=== PATIENT | female | born 1965 | race Caucasian/White ===

== ENCOUNTER 2023-08-08 17:41 | Emergency (ER) | payer OTHER, SELFPAY ==
[2023-08-08 17:55] VITALS: BP 146/99
[2023-08-08] MEDS: MOTRIN 600 MG PO (20:04)
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
[2023-08-08 21:01] VITALS: BP 142/92
[2023-08-08 21:02] VITALS: BP 142/92
== END 2023-08-08 21:03 | disposition home or self-care (01) ==
LOC: EMR 17:41
PROVIDERS: EMERGENCY PHYSICIAN Emergency Medicine; FAMILY PHYSICIAN Family Medicine
DX: S46.912A Strain of unspecified muscle, fascia and tendon at shoulder and upper arm level, left arm, initial encounter (principal); V43.52XA Car driver injured in collision with other type car in traffic accident, initial encounter; Y92.410 Unspecified street and highway as the place of occurrence of the external cause
CPT/HCPCS: 99283; 96372; 73030; 73564

== ENCOUNTER 2024-09-04 05:58 | Day surgery (SDC) | payer OTHER, BC, SELFPAY ==
[2024-08-30 13:54] VITALS: BMI 28.8
[2024-08-30 14:12] LABS: Hematocrit 38.5 % (37.0-47.0); Hemoglobin 12.7 g/dL (12.0-16.0); Mean Corpuscular Hgb 29.5 pg (27.0-31.0); Mean Corpuscular Volume 89.3 fL (81.0-99.0); Mean Platelet Volume 12.2 fL (7.4-10.4); Platelet Count 204 10^3/uL (130-400); Red Blood Cell Count 4.31 10^6/uL (4.20-5.40); Red Cell Dist. Width 13.9 % (11.5-14.5); White Blood Cell Count 6.3 10^3/uL (4.8-10.8)
[2024-08-30 14:21] LABS: ALT (SGPT) 20 U/L (0-35); AST (SGOT) 23 U/L (14-36); Albumin 4.7 g/dl (3.5-5.0); Alkaline Phosphatase 120 U/L (38-126); Blood Urea Nitrogen 21 mg/dl (7-17); Calcium 10.2 mg/dl (8.4-10.2); Carbon Dioxide 27 mmol/L (22-30); Chloride 105 mmol/L (98-107); Estimated Creatinine Clearance 74 ml/min; Glucose 90 mg/dl (70-99); Potassium 4.7 mmol/L (3.5-5.1); Sodium 142 mmol/L (135-145); Total Bilirubin 0.5 mg/dl (0.2-1.3); Total Protein 7.4 g/dl (6.3-8.2); eGFR > 60.00
[2024-09-02 10:10] VITALS: BMI 28.8
[2024-09-04] VITALS (18 sets, daily range): BP systolic 107–151; BP diastolic 65–91; PULSE 71–78; O2SAT 90–97; BMI 28.8
[2024-09-04] MEDS: CELEBREX 200 MG PO (06:31)
[2024-09-04] MEDS: TYLENOL 1000 MG PO ×3 (06:32→17:54)
[2024-09-04] MEDS: METHOCARBAMOL 1500 MG PO ×3 (06:32→22:07)
[2024-09-04] MEDS: LYRICA 150 MG PO (06:33)
[2024-09-04] MEDS: NORMOSOL-R/PLASMALYTE-A 1000 IV ×3 (06:33→21:13)
[2024-09-04] MEDS: ZOFRAN 4 MG IV ×2 (09:00→16:37)
--- NOTE | 2024-09-04 09:06 | W.PN.UPDATE ---
Update Note
Progress Note Update
C5-6-7 ACDF
SVT-tele+BB
--- NOTE | 2024-09-04 09:13 | W.DS.TRANS ---
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
-
Discharge Instructions:
Sleep Apnea Risk Intermediate
Discharge Diagnosis/Procedures C5-6-7 ACDF 09/04/24
Diet As tolerated
Activity No strenuous activity
Driving Restrictions No driving
Instructions:
Stand-Alone Forms: Street Cervical D/C Inst.
Changes to Home Medications: Yes
Discharge Medications:
DC Medications w/original date entered in [facility]
atorvastatin 10 mg tablet 10 mg PO HS 09/02/24
duloxetine 60 mg capsule,delayed release 60 mg PO HS 09/02/24
gabapentin 300 mg capsule 300 mg PO HS 09/02/24
metoprolol succinate 25 mg tablet,extended release 24 hr 25 mg PO HS 09/02/24
pantoprazole 40 mg tablet,delayed release 40 mg PO PRN PRN gerd 09/02/24
Saccharomyces boulardii 250 mg capsule (Florastor) 250 mg PO BID #1 cap 09/04/24
acetaminophen 325 mg tablet (Tylenol) 650 mg (2 x 325 mg) PO QID #0 tabs 09/04/24
cephalexin 500 mg capsule 500 mg PO QID infection prevention #20 caps 09/04/24
dexamethasone 4 mg tablet 4 mg PO BID inflammation #6 tabs 09/04/24
diazepam 2 mg tablet (Valium) 2 mg PO BID muscle pain/sleep #10 tabs 09/04/24
docusate sodium 100 mg capsule (Colace) 100 mg PO BID stool softner #1 cap 09/04/24
magnesium hydroxide 400 mg/5 mL oral suspension (Milk of Magnesia) 30 ml PO HS PRN Constipation #1 mL 09/04/24
ondansetron 4 mg disintegrating tablet 4 mg PO Q6H PRN n/v #20 tabs 09/04/24
oxycodone 5 mg tablet 5 mg PO Q6H PRN 1 tab moderate pain, 2 tabs severe pain #30 tabs 09/04/24
sennosides 8.6 mg tablet (Senokot) 17.2 mg (2 x 8.6 mg) PO BID laxative #2 tabs 09/04/24
Home Medication Changes
Saccharomyces boulardii 250 mg capsule (Florastor) 250 mg PO BID #1 cap 09/04/24
acetaminophen 325 mg tablet (Tylenol) 650 mg (2 x 325 mg) PO QID #0 tabs 09/04/24
cephalexin 500 mg capsule 500 mg PO QID infection prevention #20 caps 09/04/24
dexamethasone 4 mg tablet 4 mg PO BID inflammation #6 tabs 09/04/24
diazepam 2 mg tablet (Valium) 2 mg PO BID muscle pain/sleep #10 tabs 09/04/24
docusate sodium 100 mg capsule (Colace) 100 mg PO BID stool softner #1 cap 09/04/24
magnesium hydroxide 400 mg/5 mL oral suspension (Milk of Magnesia) 30 ml PO HS PRN Constipation #1 mL 09/04/24
ondansetron 4 mg disintegrating tablet 4 mg PO Q6H PRN n/v #20 tabs 09/04/24
oxycodone 5 mg tablet 5 mg PO Q6H PRN 1 tab moderate pain, 2 tabs severe pain #30 tabs 09/04/24
sennosides 8.6 mg tablet (Senokot) 17.2 mg (2 x 8.6 mg) PO BID laxative #2 tabs 09/04/24
Pending Results: No
--- NOTE | 2024-09-04 11:58 | PTCARENOTE ---
Received patient from PACU via bed in stable condition. Cervical collar in place. Dressing to right neck CDI. VS stable. SR on Telemetry. Neurovascular check wnl. Oriented to room. Call lopez in reach.
[2024-09-04] MEDS: ULTRAM PO ×2 (13:17→16:33)
[2024-09-04] MEDS: ANCEF 5 IV ×2 (13:18→22:07)
[2024-09-04] MEDS: METHOCARBAMOL PO (17:54)
[2024-09-04] MEDS: LYRICA 75 MG PO (17:54)
[2024-09-04] MEDS: ULTRAM 50 MG PO (20:35)
[2024-09-04] MEDS: SENOKOT 17.2 MG PO (20:35)
[2024-09-04] MEDS: COLACE 100 MG PO (20:35)
[2024-09-04] MEDS: PROTONIX 40 MG PO (22:06)
[2024-09-04] MEDS: CYMBALTA DELAYED RELEASE 60 MG PO (22:06)
[2024-09-04] MEDS: LIPITOR 10 MG PO (22:07)
[2024-09-04] MEDS: TOPROL XL 25 MG PO (22:07)
[2024-09-05] MEDS: TYLENOL 1000 MG PO ×3 (00:21→13:05)
[2024-09-05] MEDS: ULTRAM 50 MG PO (00:21)
[2024-09-05 03:13] VITALS: BP 117/68
[2024-09-05] MEDS: ULTRAM PO ×2 (04:38→09:07)
[2024-09-05] MEDS: LYRICA 75 MG PO (06:19)
[2024-09-05] MEDS: NORMOSOL-R/PLASMALYTE-A 1000 IV (06:42)
[2024-09-05 07:03] VITALS: BP 117/69
[2024-09-05 07:22] LABS: Hematocrit 35.6 % (37.0-47.0); Hemoglobin 11.7 g/dL (12.0-16.0)
[2024-09-05 07:50] LABS: Blood Urea Nitrogen 15 mg/dl (7-17); Calcium 9.1 mg/dl (8.4-10.2); Carbon Dioxide 27 mmol/L (22-30); Chloride 109 mmol/L (98-107); Estimated Creatinine Clearance 95 ml/min; Glucose 84 mg/dl (70-99); Potassium 4.7 mmol/L (3.5-5.1); Sodium 142 mmol/L (135-145); eGFR > 60.00
--- NOTE | 2024-09-05 07:57 | W.DS.TRANS ---
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
-
Discharge Instructions:
Sleep Apnea Risk Intermediate
Discharge Diagnosis/Procedures C5-6-7 ACDF 09/04/24
Diet As tolerated
Activity No strenuous activity
Driving Restrictions No driving
Instructions:
Stand-Alone Forms: Street Cervical D/C Inst.
Changes to Home Medications: No
Discharge Medications:
DC Medications w/original date entered in [email or web address]
atorvastatin 10 mg tablet 10 mg PO HS 09/02/24
duloxetine 60 mg capsule,delayed release 60 mg PO HS 09/02/24
gabapentin 300 mg capsule 300 mg PO HS 09/02/24
metoprolol succinate 25 mg tablet,extended release 24 hr 25 mg PO HS 09/02/24
pantoprazole 40 mg tablet,delayed release 40 mg PO PRN PRN gerd 09/02/24
Saccharomyces boulardii 250 mg capsule (Florastor) 250 mg PO BID #1 cap 09/04/24
acetaminophen 325 mg tablet (Tylenol) 650 mg (2 x 325 mg) PO QID #0 tabs 09/04/24
cephalexin 500 mg capsule 500 mg PO QID infection prevention #20 caps 09/04/24
dexamethasone 4 mg tablet 4 mg PO BID inflammation #6 tabs 09/04/24
diazepam 2 mg tablet (Valium) 2 mg PO BID muscle pain/sleep #10 tabs 09/04/24
docusate sodium 100 mg capsule (Colace) 100 mg PO BID stool softner #1 cap 09/04/24
magnesium hydroxide 400 mg/5 mL oral suspension (Milk of Magnesia) 30 ml PO HS PRN Constipation #1 mL 09/04/24
ondansetron 4 mg disintegrating tablet 4 mg PO Q6H PRN n/v #20 tabs 09/04/24
oxycodone 5 mg tablet 5 mg PO Q6H PRN 1 tab moderate pain, 2 tabs severe pain #30 tabs 09/04/24
sennosides 8.6 mg tablet (Senokot) 17.2 mg (2 x 8.6 mg) PO BID laxative #2 tabs 09/04/24
Home Medication Changes
Pending Results: No
--- NOTE | 2024-09-05 07:57 | W.PN.SP ---
Today's Communication / Plan
-
s/p acdf
Doing well
D/c
Subjective / Objective
Subjective Data
Pt doing well
Feels goos
DEnies eakness
Objective Data
Vital Signs
Temp Pulse Resp BP Pulse Ox
98.3 F 83 16 117/68 94
09/05/24 03:13 09/05/24 03:13 09/05/24 03:13 09/05/24 03:13 09/05/24 03:13
Intake and Output
09/04/24 09/05/24 09/06/24
06:59 06:59 06:59
Intake Total 2595 / 2595
Output Total 600 / 600
Balance 1994 / 1994
Intake:
Oral fluids 720 / 720
IV fluids (Total) 1875 / 187
normosol 75 / 75
Output:
Urine, Voided 600 / 600
Other:
Number of approximated MODERATE 3
amounts of urine
Lab Data
09/05/24 05:44
09/05/24 05:44
Physical Exam
-
5/5 UE
[2024-09-05] MEDS: METHOCARBAMOL 1500 MG PO (09:06)
[2024-09-05] MEDS: COLACE 100 MG PO (09:07)
[2024-09-05] MEDS: SENOKOT 17.2 MG PO (09:07)
--- NOTE | 2024-09-05 09:46 | W.PN.ORTHO ---
Today's Communication / Plan
-
d/c
Assessment
.
Distal Motor Intact: Yes
Dressing:
Clean, dry and intact.
Assessment:
SVT-tele+BB-stable
Plan
.
Surgery / Date: C5-6-7 ACDF
Activity:
Out of bed.
PT/OT
Discharge Plan: Home
Subjective
.
.:
Patient resting comfortably.
Vital Signs and Labs
.
Vital Signs and Labs:
Lab Results
09/05/24 05:44
09/05/24 05:44
Temp Pulse Resp BP Pulse Ox
97.8 F 71 15 117/69 94
09/05/24 07:03 09/05/24 07:03 09/05/24 07:03 09/05/24 07:03 09/05/24 07:03
Physical Exam
-
HEENT: No pallor, cyanosis, or jaundice. Throat clear.
NECK: Supple. No JVD.
RESPIRATORY: Lungs clear to auscultation.
CVS: S1, S2 normal. RRR.� No murmur, rub or gallop.
ABDOMEN: Soft, non-tender. No distension. BS+/normal.
EXTREMITIES: strength equal, no calf pain with palpation
APPOINTMENT COORDINATOR: AOx3. No focal deficits. 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
[2024-09-05 09:50] VITALS: BP 112/69; PULSE 88; O2SAT 95
--- NOTE | 2024-09-05 10:10 | CM ---
CM reviewed medical records. CM met with patient in room. Patent confirmed demographics. Patient lives independently with . Patient does not have a history of VN, SNF or DME. Patient is active with her PCP. [facility] uses [facility] for
medication services.
Patient will have and daughters for support.
PLAN: home no needs.
[2024-09-05 10:43] VITALS: BP 112/74; PULSE 78
[2024-09-05 10:55] VITALS: BP 111/63
== END 2024-09-05 14:50 | disposition home or self-care (01) ==
LOC: SDS 05:58
PROVIDERS: Physician Assistant Medical; ATTENDING PHYSICIAN Orthopaedic Surgery Orthopaedic Surgery of the Spine; FAMILY PHYSICIAN Family Medicine
DX: M48.02 Spinal stenosis, cervical region (principal); R42 Dizziness and giddiness
CPT/HCPCS: 22554; 22551; 20930; C1776; 36415; 72020; 80048; 80053; 85014; 85018; 85027; 86850; 86900; 86901; 87070; 97116; 97161; 97166; 97535; C1713

== ENCOUNTER → 2025-02-03 13:09 | Outpatient (REF) | payer BC, SELFPAY | LOC: PAVMRI 13:09 | PROVIDERS: ATTENDING PHYSICIAN Orthopaedic Surgery Orthopaedic Surgery of the Spine | DX: M48.062 Spinal stenosis, lumbar region with neurogenic claudication (principal) | CPT/HCPCS: 72148 ==